=== PATIENT | female | born 1955 | race Caucasian/White ===

== ENCOUNTER 2018-09-13 14:02 | Emergency (ER) | payer BC ==
--- NOTE | 2018-09-13 14:05 | EDM.PDOC ---
ED HPI GENERAL MEDICAL PROBLEM - General Chief Complaint: Gastrointestinal Problem Stated Complaint: VOMITING/CHILLS/DIARREA Time Seen by Provider: 09/13/18 14:04 Source of Information: Reports: Patient History Limitations: Reports: No Limitations - History of Present Illness INITIAL COMMENTS - FREE TEXT/NARRATIVE: HISTORY AND PHYSICAL: History of present illness: Patient is a 63-year-old female who presents to the emergency room with complaints of nausea, vomiting and diarrhea 5 days. She states she took a tablet of Cipro this morning she was concerned she may have a bacterial infectious diarrhea. She did have a temperature this morning of 101. Patient denies any headache, change in vision, syncope or near syncope. Denies any chest pain, back pain, shortness of breath or cough. Denies any constipation or dysuria. Has not noted any blood in urine or stool. Patient has been eating and drinking appropriately. No recent travel. Review of systems: As per history of present illness and below otherwise all systems reviewed and negative. Past medical history: As per history of present illness and as reviewed below otherwise noncontributory. Surgical history: As per history of present illness and as reviewed below otherwise noncontributory. Social history: See social history for further information Family history: As per history of present illness and as reviewed below otherwise noncontributory. Physical exam: General: Well-developed and well-nourished 63-year-old female. Alert and oriented. Nontoxic appearing and in no acute distress. HEENT: Atraumatic, normocephalic, pupils equal and reactive bilaterally, negative for conjunctival pallor or scleral icterus, mucous membranes moist, TMs normal bilaterally, throat clear, neck supple, nontender, trachea midline. No drooling or trismus noted. No meningeal signs. No hot potato voice noted. Lungs: Clear to auscultation, breath sounds equal bilaterally, chest nontender. Heart: S1S2, regular rate and rhythm without overt murmur Abdomen: Soft, nondistended, nontender. Negative for masses or hepatosplenomegaly. Negative for costovertebral tenderness. Pelvis: Stable nontender. Genitourinary: Deferred. Rectal: Deferred. Skin: Intact, warm, dry. No lesions or rashes noted. Extremities: Atraumatic, moves all extremities per self with difficulty or deficits, negative for cords or calf pain. Neurovascular unremarkable. Neuro: Awake, alert, oriented. Cranial nerves II through XII unremarkable. Cerebellum unremarkable. Motor and sensory unremarkable throughout. Exam nonfocal. Notes: CT shows no acute findings. She does have slightly lower potassium which is likely due from her frequent diarrhea and vomiting. We'll give her a dose of potassium while here. She states she is feeling much better after the IV fluids and Zofran. We'll treat her urinary tract infection with Macrobid and give her prescription for Zofran. During her four-hour stay here she has had no nausea or vomiting. Stool did not show any infectious causes. We discussed the need for appropriate follow-up care. Supportive care measures were reviewed and discussed. Voices understanding and is agreeable to plan of care. Denies any further questions or concerns at this time. Diagnostics: CBC, CMP, UA, stool studies, lipase, CT abdom/pelv Therapeutics: IV fluid, Zofran, Toradol, Bentyl, Rocephin, K-dur Prescription: Macrobid Zofran Impression: Dehydration Hypokalemia UTI Plan: 1. Increase your oral fluids. [place] diet and advance as tolerated. 2. Take the antibiotic as prescribed. Use the Zofran for nausea. 3. Follow-up with your primary care provider for reevaluation. Return to the ED as needed and as discussed. Definitive disposition and diagnosis as appropriate pending reevaluation and review of above. Abdominal Pain Score (Numeric/FACES): 3 - Related Data Allergies Allergy/AdvReac Type Severity Reaction Status Date / Time Sulfa (Sulfonamide Allergy Hives Verified 09/13/18 14:22 Antibiotics) Home Meds: Home Meds Candesartan Cilexetil 32 mg PO DAILY 09/13/18 [History] Metoprolol Succinate [Toprol XL] 50 mg PO DAILY 09/13/18 [History] Nitrofurantoin Monohyd/M-Cryst [Macrobid 100 mg Capsule] 100 mg PO BID 7 Days # 14 capsule 09/13/18 [Rx] Ondansetron [Zofran ODT] 4 mg PO Q6H PRN #6 tab.dis 09/13/18 [Rx] Pantoprazole [ProTONIX IV] 40 mg PO DAILY 09/13/18 [History] amLODIPine Besylate [Amlodipine Besylate] 5 mg PO DAILY 09/13/18 [History] ED ROS GENERAL - Review of Systems Review Of Systems: ROS reveals no pertinent complaints other than HPI. ED EXAM, GI/ABD - Physical Exam Exam: See Below (See dictation) Course - Vital Signs Last Recorded V/S: Last Vital Signs Temp 98.0 F 09/13/18 14:20 Pulse 77 09/13/18 16:08 Resp 18 09/13/18 16:08 BP 147/74 H 09/13/18 16:08 Pulse Ox 97 09/13/18 16:08 - Orders/Labs/Meds Orders: Active Orders 24 hr Category Date Time Status CULTURE STOOL + CAMPY+SHIGATOX [RM] Stat Lab 09/13/18 16:00 Results Potassium Chloride [Klor-Con M20] Med 09/13/18 17:30 Active 40 meq PO DAILY Sodium Chloride 0.9% [Normal Saline] 1,000 ml Med 09/13/18 17:12 Active IV STAT Medication Orders Sodium Chloride (Normal Saline) 1,000 mls @ 999 mls/hr IV STAT ONE Stop: 09/13/18 18:12 Last Admin: 09/13/18 17:46 Dose: 999 mls/hr Potassium Chloride (Klor-Con M20) 40 meq PO DAILY [facility] Last Admin: 09/13/18 17:49 Dose: 40 meq Labs: Laboratory Tests 09/13/18 09/13/18 09/13/18 Range/Units 14:45 14:45 16:00 WBC 5.86 (4.0-11.0) K/uL RBC 5.74 (4.30-5.90) M/uL Hgb 17.2 H (12.0-16.0) g/dL Hct 49.1 H (36.0-46.0) % MCV 85.5 (80.0-98.0) fL MCH 30.0 (27.0-32.0) pg MCHC 35.0 (31.0-37.0) g/dL RDW Std Deviation 41.8 (28.0-62.0) fl RDW Coeff of Jasmin 14 (11.0-15.0) % Plt Count 192 (150-400) K/uL MPV 11.20 (7.40-12.00) fL Neut % (Auto) 59.2 (48.0-80.0) % Lymph % (Auto) 26.1 (16.0-40.0) % [place] % (Auto) 12.8 (0.0-15.0) % Eos % (Auto) 1.4 (0.0-7.0) % Baso % (Auto) 0.5 (0.0-1.5) % Neut # (Auto) 3.5 (1.4-5.7) K/uL Lymph # (Auto) 1.5 (0.6-2.4) K/uL [place] # (Auto) 0.8 (0.0-0.8) K/uL Eos # (Auto) 0.1 (0.0-0.7) K/uL Baso # (Auto) 0.0 (0.0-0.1) K/uL Nucleated RBC % 0.0 /100WBC Nucleated RBCs # 0 K/uL Sodium 137 (136-145) mmol/L Potassium 3.2 L (3.5-5.1) mmol/L Chloride 101 (98-107) mmol/L Carbon Dioxide 17.7 L (21.0-32.0) mmol/L BUN 23 H (7.0-18.0) mg/dL Creatinine 1.2 H (0.6-1.0) mg/dL Est Cr Clr Drug Dosing 46.09 mL/min Estimated GFR (MDRD) 45.7 ml/min Glucose 118 H (74-106) mg/dL Calcium 9.3 (8.5-10.1) mg/dL Total Bilirubin 0.7 (0.2-1.0) mg/dL AST 43 H (15-37) IU/L ALT 52 (14-63) IU/L Alkaline Phosphatase 84 (46-116) U/L Total Protein 8.3 H (6.4-8.2) g/dL Albumin 4.3 (3.4-5.0) g/dL Globulin 4.0 (2.6-4.0) g/dL Albumin/Globulin Ratio 1.1 (0.9-1.6) Lipase 111 (73-393) U/L Urine Color YELLOW Urine Appearance SLT CLOUDY Urine pH 5.5 (5.0-8.0) Ur Specific [place] 1.020 (1.001-1.035) Urine Protein 30 H (NEGATIVE) mg/dL Urine Glucose (UA) NEGATIVE (NEGATIVE) mg/dL Urine Ketones 15 H (NEGATIVE) mg/dL Urine Occult Blood TRACE-INTACT H (NEGATIVE) Urine Nitrite NEGATIVE (NEGATIVE) Urine Bilirubin SMALL H (NEGATIVE) Urine Ictotest NEGATIVE Urine Urobilinogen 0.2 (<2.0) EU/dL Ur Leukocyte Esterase NEGATIVE (NEGATIVE) Urine RBC 0-2 (0-2/HPF) Urine WBC 18-20 (0-5/HPF) Ur Epithelial Cells MODERATE (NONE-FEW) Urine Bacteria 1+ H (NEGATIVE) Urine Mucus LIGHT (NONE-MOD) Meds: Medications Generic Name Dose Route Start Last Admin Trade Name Freq PRN Reason Stop Dose Admin Sodium Chloride 1,000 mls @ 999 mls/hr 09/13/18 17:12 09/13/18 17:46 Normal Saline IV 09/13/18 18:12 999 mls/hr STAT ONE Administration Potassium Chloride 40 meq 09/13/18 17:30 09/13/18 17:49 Klor-Con M20 PO 40 meq DAILY IBAN Administration Discontinued Medications Generic Name Dose Route Start Last Admin Trade Name Freq PRN Reason Stop Dose Admin Dicyclomine HCl 10 mg 09/13/18 14:58 09/13/18 16:19 Bentyl PO 09/13/18 14:59 Not Given ONETIME ONE Sodium Chloride 1,000 mls @ 999 mls/hr 09/13/18 14:06 09/13/18 14:33 Normal Saline IV 09/13/18 15:06 999 mls/hr STAT ONE Administration Ceftriaxone Sodium/Dextrose 1 50 mls @ 100 mls/hr 09/13/18 17:09 09/13/18 17: 47 gm/ Premix IV 09/13/18 17:38 100 mls/hr ONETIME ONE Administration Iopamidol 75 ml 09/13/18 15:51 09/13/18 15:51 Isovue-300 (61%) IVPUSH 09/13/18 15:52 75 ml ONETIME ONE Administration Ondansetron HCl 4 mg 09/13/18 14:06 09/13/18 14:34 Zofran IVPUSH 09/13/18 14:07 4 mg ONETIME ONE Administration Departure - Departure Time of Disposition: 17:56 Disposition: Home, Self-Care 01 Clinical Impression: UTI, Urinary tract infectious disease, Gastroenteritis, Dehydration - Discharge Information Prescriptions: Nitrofurantoin Monohyd/M-Cryst [Macrobid 100 mg Capsule] 100 mg PO BID 7 Days # 14 capsule Ondansetron [Zofran ODT] 4 mg PO Q6H PRN #6 tab.dis PRN Reason: Nausea Referrals: PCP,None [Primary Care Provider] - Forms: ED Department Discharge Additional Instructions: The following information is given to patients seen in the emergency department who are being discharged to home. This information is to outline your options for follow-up care. We provide all patients seen in our emergency department with a follow-up referral. The need for follow-up, as well as the timing and circumstances, are variable depending upon the specifics of your emergency department visit. If you don't have a primary care physician on staff, we will provide you with a referral. We always advise you to contact your personal physician following an emergency department visit to inform them of the circumstance of the visit and for follow-up with them and/or the need for any referrals to a consulting specialist. The emergency department will also refer you to a specialist when appropriate. This referral assures that you have the opportunity for follow-up care with a specialist. All of these measure are taken in an effort to provide you with optimal care, which includes your follow-up. Under all circumstances we always encourage you to contact your private physician who remains a resource for coordinating your care. When calling for follow-up care, please make the office aware that this follow-up is from your recent emergency room visit. If for any reason you are refused follow-up, please contact the [facility] Emergency Department at and asked to speak to the emergency department charge nurse. [facility] [address] [place] [address] [id number] [id number] 1. Increase your oral fluids. [place] diet and advance as tolerated. 2. Take the antibiotic as prescribed. Use the Zofran for nausea. 3. Some of the studies that were done today are send outs. You will be notified if your antibiotic needs to be adjusted. 4. Follow-up with your primary care provider for reevaluation. Return to the ED as needed and as discussed. - My Orders Last 24 Hours: My Active Orders 09/13/18 16:00 CULTURE STOOL + CAMPY+SHIGATOX [RM] Stat 09/13/18 17:12 Sodium Chloride 0.9% [Normal Saline] 1,000 ml IV STAT 09/13/18 17:30 Potassium Chloride [Klor-Con M20] 40 meq PO DAILY - Assessment/Plan Last 24 Hours: My Active Orders 09/13/18 16:00 CULTURE STOOL + CAMPY+SHIGATOX [RM] Stat 09/13/18 17:12 Sodium Chloride 0.9% [Normal Saline] 1,000 ml IV STAT 09/13/18 17:30 Potassium Chloride [Klor-Con M20] 40 meq PO DAILY
[2018-09-13] MEDS ORDERED: Sodium Chloride 0.9% 1,000 ML IV ONE ×2 (14:06→17:12)
[2018-09-13] MEDS ORDERED: Ondansetron 4 MG/2 ML SDV IVPUSH ONE (14:06)
[2018-09-13] MEDS ORDERED: Iopamidol 612 MG/ML 100 ML Bottle IVPUSH ONE (15:51)
--- NOTE | 2018-09-13 16:09 | CT ---
CT of the abdomen and pelvis with contrast. HISTORY: Nausea and vomiting TECHNIQUE: Axial CT images were obtained of the abdomen and pelvis following administration of 75 mL of Isovue-300 in the left forearm without complication. Coronal and sagittal reconstructions obtained. FINDINGS: The lung bases are clear, no pleural effusion. Tiny hiatal hernia. The liver, spleen, adrenal glands, and pancreas appear normal. Cholecystectomy clips are noted. There is no bulky retroperitoneal lymphadenopathy or abdominal ascites. The kidneys enhance and function symmetrically without evidence of obstructive uropathy. The large and small bowel are normal in caliber without evidence of obstruction. No focal pericolonic inflammation or stranding. Mild to moderate diverticulosis without evidence of diverticulitis. No free fluid or pelvic lymphadenopathy. No suspicious osseous abnormalities identified. IMPRESSION: 1. No acute findings noted within the abdomen or pelvis.
[2018-09-13] MEDS: Dicyclomine 10 MG Cap PO ONE ×2 (16:19→18:33)
[2018-09-13] MEDS ORDERED: cefTRIAXone 1 GM in Premix Bag 1 BAG IV ONE (17:09)
[2018-09-13] MEDS ORDERED: Potassium Chloride 20 MEQ Tab.ER PO SCH (17:30)
== END 2018-09-13 18:35 | disposition home or self-care (01) ==
LOC: MW.ED 14:02
DX: K52.9 Noninfective gastroenteritis and colitis, unspecified (principal); N39.0 Urinary tract infection, site not specified; E87.6 Hypokalemia; Z88.2 Allergy status to sulfonamides; Z79.899 Other long term (current) drug therapy
CPT/HCPCS: 36415; 74177; 80053; 81001; 83690; 85025; 87046; 87324; 87899; 96361; 96365; 96375; 99284; A9270; J0696; J2405; J7040; Q9967